=== PATIENT | female | born 1980 | race Caucasian/White ===

== ENCOUNTER 2016-12-16 14:50 | Emergency (ER) | payer OTHER ==
[2016-12-16 15:01] VITALS: BP 133/80
[2016-12-16] MEDS ORDERED: Sodium Chloride 0.9% 10 ML Syringe FLUSH PRN (15:14)
[2016-12-16] MEDS ORDERED: Sodium Chloride 0.9% 1,000 ML IV ONE (15:14)
[2016-12-16] MEDS ORDERED: Ondansetron 4 MG/2 ML SDV IVPUSH ONE (15:15)
[2016-12-16] MEDS ORDERED: HYDROmorphone 1 MG/ML Syringe IVPUSH ONE (15:15)
--- NOTE | 2016-12-16 15:22 | EDM.PDOC ---
ED HPI GENERAL MEDICAL PROBLEM - General Chief Complaint: Genitourinary Problem Stated Complaint: POSS UTI Time Seen by Provider: 12/16/16 15:05 Source of Information: Reports: Patient History Limitations: Reports: No Limitations - History of Present Illness INITIAL COMMENTS - FREE TEXT/NARRATIVE: Patient is a 36-year-old female presents to ED with history of frequent UTIs. Patient states last week she was diagnosed with UTI and was placed on 3 days of Ciprowith resolution of symptoms. Patient states since yesterday she has had burning with urination, increased frequency, and back pain. Patient states the pain she is experiencing is much worse then previous episodes. She has no history of Pyelonephritis. She has been utilizing multiple OTC supplements. She does have a history of kidney stones. Denies being , hx of STDs, abnormal vaginal discharge, multiple sexual partners. Recent FOLLOW UP MANAGER check 09/2016 revealed no abnormal findings. Onset Date: 12/15/16 Duration: Constant, Getting Worse, Waxing/Waning Location: Reports: Abdomen (suprapubic), Back Quality: Reports: Ache Severity: Severe Improves with: Reports: None Worsens with: Reports: Other (palpation, urinating), Movement Associated Symptoms: Reports: Fever/Chills, Malaise, Nausea/Vomiting. Denies: Chest Pain, Shortness of Breath Treatments MECHANICAL EXPERT: Reports: Other (see below) (OTC supplements ) Lower Abdominal Pain Score (Numeric/FACES): 10 - Related Data Allergies Allergy/AdvReac Type Severity Reaction Status Date / Time Sulfa (Sulfonamide Allergy Other Verified 08/05/16 11:09 Antibiotics) bee stings Allergy Anaphylactic Uncoded 08/05/16 11:09 Shock Home Meds: Home Meds Prednisone [IMW: predniSONE] 20 mg PO WITHBREAKFAST #5 tab 08/05/16 [Rx] Acetaminophen/HYDROcodone [[place] 325-5 MG] 1 tab PO Q6H PRN #5 tablet 12/16/16 [ Rx] Nitrofurantoin Monohyd/M-Cryst [Macrobid 100 mg Capsule] 100 mg PO BID #14 capsule 12/16/16 [Rx] Past Medical History Genitourinary History: Reports: UTI, Recurrent - Past Surgical History HEENT Surgical History: Reports: Tonsillectomy Social & Family History - Family History Family Medical History: Noncontributory - Tobacco Use Smoking Status *Q: Current Every Day Smoker Years of Tobacco use: 20 Packs/Tins Daily: 0.2 - Caffeine Use Caffeine Use: Reports: None - Recreational Drug Use Recreational Drug Use: No ED ROS GENERAL - Review of Systems Review Of Systems: See Below Constitutional: Reports: Fever, Malaise. Denies: Chills, Decreased Appetite Respiratory: Denies: Shortness of Breath, Cough, Sputum Cardiovascular: Denies: Chest Pain, Palpitations, Syncope GI/Abdominal: Reports: Abdominal Pain, Nausea. Denies: Constipation, Diarrhea, Vomiting : Reports: Dysuria, Flank Pain, Frequency, Hematuria, Pain, Urgency. Denies: Discharge Musculoskeletal: Reports: Back Pain ED EXAM, RENAL/ - Physical Exam Exam: See Below Exam Limited By: No Limitations General Appearance: Alert, WD/WN, Moderate Distress Ears: Hearing Grossly Normal Nose: Normal Inspection Throat/Mouth: Normal Voice, No Airway Compromise Neck: Normal Inspection, Supple Respiratory/Chest: No Respiratory Distress, Lungs Clear, Normal Breath Sounds Cardiovascular: Normal Peripheral Pulses, Regular Rate, Rhythm GI/Abdominal: Normal Bowel Sounds, Soft, No Organomegaly, No Distention, Tender (suprapubic region) Back Exam: Normal Inspection. No: CVA Tenderness (L), CVA Tenderness (R) Neurological: Alert, Oriented, CN II-XII Intact, Normal Cognition, No Motor/ Sensory Deficits Psychiatric: Normal Affect, Normal Mood Skin Exam: Warm, Dry, Intact, Normal Color, No Rash Course - Vital Signs Last Recorded V/S: Last Vital Signs Temp 99.1 F 12/16/16 14:56 Pulse 107 H 12/16/16 14:56 Resp BP 133/80 12/16/16 14:56 Pulse Ox 99 12/16/16 14:56 - Orders/Labs/Meds Orders: Active Orders 24 hr Category Date Time Status Peripheral IV Care [RC] . DIRECTED Care 12/16/16 15:14 Active CULTURE URINE [RM] Stat Lab 12/16/16 15:07 Received Peripheral IV Insertion Adult [OM.PC] Stat Oth 12/16/16 15:14 Ordered Labs: Laboratory Tests 12/16/16 12/16/16 12/16/16 Range/Units 15:07 15:07 15:22 WBC 14.29 H (3.98-10.04) K/mm3 RBC 4.10 (3.98-5.22) M/mm3 Hgb 13.5 (11.2-15.7) gm/L Hct 39.6 (34.1-44.9) % MCV 96.6 H (79.4-94.8) fl MCH 32.9 H (25.6-32.2) pg MCHC 34.1 (32.2-35.5) g/dl RDW Std Deviation 42.1 (36.4-46.3) fL Plt Count 477 H (182-369) K/mm3 MPV 9.4 (9.4-12.3) fl Neut % (Auto) 59.5 (34.0-71.1) % Lymph % (Auto) 30.4 (19.3-51.7) % [place] % (Auto) 8.7 (4.7-12.5) % Eos % (Auto) 0.7 (0.7-5.8) Baso % (Auto) 0.5 (0.1-1.2) % Neut # (Auto) 8.49 H (1.56-6.13) K/mm3 Lymph # (Auto) 4.35 H (1.18-3.74) K/mm3 [place] # (Auto) 1.25 H (0.24-0.36) K/mm3 Eos # (Auto) 0.10 (0.04-0.36) K/mm3 Baso # (Auto) 0.07 (0.01-0.08) K/mm3 Sodium (136-145) mEq/L Potassium (3.5-5.1) mEq/L Chloride (98-107) mEq/L Carbon Dioxide (21-32) mEq/L Anion Gap (5-15) BUN (7-18) mg/dL Creatinine (0.55-1.02) mg/dL Est Cr Clr Drug Dosing Estimated GFR (MDRD) (>60) mL/min BUN/Creatinine Ratio (14-18) Glucose (74-106) mg/dL Calcium (8.5-10.1) mg/dL Total Bilirubin (0.2-1.0) mg/dL AST (15-37) U/L ALT (14-59) U/L Alkaline Phosphatase (46-116) U/L C-Reactive Protein (<1.0) mg/dL Total Protein (6.4-8.2) g/dl Albumin (3.4-5.0) g/dl Globulin gm/dL Albumin/Globulin Ratio (1-2) Urine Color Glenn H (Yellow) Urine Appearance Slt cloudy H (Clear) Urine pH 6.0 (5.0-8.0) Ur Specific [place] 1.020 (1.005-1.030) Urine Protein 2+ H (Negative) Urine Glucose (UA) Trace H (Negative) Urine Ketones Trace H (Negative) Urine Occult Blood Trace-intact H (Negative) Urine Nitrite Positive H (Negative) Urine Bilirubin Negative (Negative) Urine Urobilinogen 1.0 (0.2-1.0) Ur Leukocyte Esterase 3+ H (Negative) Urine RBC 5-10 H (0-5) /hpf Urine WBC 75-100 H (0-5) /hpf Urine WBC Clumps Few (NOT SEEN) /hpf Ur Epithelial Cells Not Reportable Ur Squamous Epith Cells 20-30 H (0-5) /hpf Urine Bacteria Moderate H (FEW) /hpf Urine Mucus Not seen (FEW) /hpf Urine HCG, Qual Negative (NEGATIVE) 12/16/16 Range/Units 15:22 WBC (3.98-10.04) K/mm3 RBC (3.98-5.22) M/mm3 Hgb (11.2-15.7) gm/L Hct (34.1-44.9) % MCV (79.4-94.8) fl MCH (25.6-32.2) pg MCHC (32.2-35.5) g/dl RDW Std Deviation (36.4-46.3) fL Plt Count (182-369) K/mm3 MPV (9.4-12.3) fl Neut % (Auto) (34.0-71.1) % Lymph % (Auto) (19.3-51.7) % [place] % (Auto) (4.7-12.5) % Eos % (Auto) (0.7-5.8) Baso % (Auto) (0.1-1.2) % Neut # (Auto) (1.56-6.13) K/mm3 Lymph # (Auto) (1.18-3.74) K/mm3 [place] # (Auto) (0.24-0.36) K/mm3 Eos # (Auto) (0.04-0.36) K/mm3 Baso # (Auto) (0.01-0.08) K/mm3 Sodium 142 (136-145) mEq/L Potassium 3.5 (3.5-5.1) mEq/L Chloride 108 H (98-107) mEq/L Carbon Dioxide 23 (21-32) mEq/L Anion Gap 14.5 (5-15) BUN 13 (7-18) mg/dL Creatinine 0.8 (0.55-1.02) mg/dL Est Cr Clr Drug Dosing TNP Estimated GFR (MDRD) > 60 (>60) mL/min BUN/Creatinine Ratio 16.3 (14-18) Glucose 99 (74-106) mg/dL Calcium 8.1 L (8.5-10.1) mg/dL Total Bilirubin 0.3 (0.2-1.0) mg/dL AST 13 L (15-37) U/L ALT 14 (14-59) U/L Alkaline Phosphatase 65 (46-116) U/L C-Reactive Protein < 0.2 (<1.0) mg/dL Total Protein 6.9 (6.4-8.2) g/dl Albumin 3.6 (3.4-5.0) g/dl Globulin 3.3 gm/dL Albumin/Globulin Ratio 1.1 (1-2) Urine Color (Yellow) Urine Appearance (Clear) Urine pH (5.0-8.0) Ur Specific [place] (1.005-1.030) Urine Protein (Negative) Urine Glucose (UA) (Negative) Urine Ketones (Negative) Urine Occult Blood (Negative) Urine Nitrite (Negative) Urine Bilirubin (Negative) Urine Urobilinogen (0.2-1.0) Ur Leukocyte Esterase (Negative) Urine RBC (0-5) /hpf Urine WBC (0-5) /hpf Urine WBC Clumps (NOT SEEN) /hpf Ur Epithelial Cells Ur Squamous Epith Cells (0-5) /hpf Urine Bacteria (FEW) /hpf Urine Mucus (FEW) /hpf Urine HCG, Qual (NEGATIVE) Meds: Medications Discontinued Medications Generic Name Dose Route Start Last Admin Trade Name Freq PRN Reason Stop Dose Admin Hydromorphone HCl 0.5 mg 12/16/16 15:15 12/16/16 15:35 Dilaudid IVPUSH 12/16/16 15:16 0.5 mg ONETIME ONE Administration Sodium Chloride 1,000 mls @ 250 mls/hr 12/16/16 15:14 12/16/16 15:32 Normal Saline IV 12/16/16 19:13 250 mls/hr ONETIME ONE Administration Ceftriaxone Sodium 1 gm/ 100 mls @ 200 mls/hr 12/16/16 16:27 12/16/16 17:36 Sodium Chloride IV 12/16/16 16:56 200 mls/hr ONETIME ONE Administration Nitrofurantoin Macrocrystals 100 mg 12/16/16 16:32 12/16/16 17:37 Macrobid PO 12/16/16 16:33 100 mg ONETIME ONE Administration Ondansetron HCl 4 mg 12/16/16 15:15 12/16/16 15:33 Zofran IVPUSH 12/16/16 15:16 4 mg ONETIME ONE Administration Oxycodone/Acetaminophen 1 tab 12/16/16 18:01 12/16/16 18:34 Percocet 325-5 Mg PO 12/16/16 18:02 Not Given ONETIME ONE Sodium Chloride 10 ml 12/16/16 15:14 12/16/16 15:37 Saline Flush FLUSH 10 ml ASDIRECTED PRN Administration Keep Vein Open - Re-Assessments/Exams Free Text/Narrative Re-Assessment/Exam: Ordered IV with NS 250ml/hr, dilaudid 0.5 mg IVP, and Zofran 4mg IVP. Patient has developed worsening pain to the abdomen, nausea, back pain, and tactile fever since yesterday. States pain is significantly worse then any previous UTI' s. This is concerning for low grade pyelonephritis. Initial labs include: CBC , C14, CRP,UA, and HCG. Labs reviewed: White blood count 14.29, neutrophil percentage 59.75, N#8.49, sodium 142, potassium 3.5, creatinine 0.8, CRP less than 0.2. UA: Glenn, 2+ protein, trace glucose, trace ketones, trace occult blood, nitrates positive, leukocyte [place] 3+, rbc's 5-10, WBC 75-100, squamous epithelial cells 20-30, bacteria moderate. urine culture obtained. Reassessment: The patient's symptoms are much improved with the above therapies. Patient states she has no history of antibiotic resistance. Thus ordered Rocephin 1 g IV. We'll discharge patient home on macrobid 100 mg twice a day for 7 days. She'll be instructed to followup with primary care provider at the end of treatment to ensure resolution of UTI. Patient is is improved with treatment plan. Departure - Departure Time of Disposition: 17:26 Disposition: Home, Self-Care 01 Condition: good Clinical Impression: UTI, Urinary tract infectious disease - Discharge Information Prescriptions: Acetaminophen/HYDROcodone [[place] 325-5 MG] 1 tab PO Q6H PRN #5 tablet PRN Reason: Pain (Severe 7-10) Nitrofurantoin Monohyd/M-Cryst [Macrobid 100 mg Capsule] 100 mg PO BID #14 capsule Instructions: Urinary Tract Infection, Adult Referrals: Erika Schmidt PA [Physician Senior Risk Manager] - 12/24/16 (Hx of frequent UTI's with no antibiotic resistance. Started on macrobid 100mg bid for 7 days. Failed cipro 500mg bid for 3 days. UA recheck to ensure resolution. ) Forms: ED Department Discharge Additional Instructions: Take the macrobid 100mg twice a day for 7 days. Followup with PCP in 7 days to ensure resolution. Continue to take pyridium 100mg twice a day for 1 day. Push the fluids. Take tylenol and ibuprofen in alternating fashion for pain. Refrain from driving this evening since receiving a sedative medication in the E.D. For severe pain take norco 1 tab every 6 hours for pain. Return to the E.D. if you develop nausea with vomiting, increased pain, fever, or any additional new or worsening symptoms. - My Orders Last 24 Hours: My Active Orders 12/16/16 15:07 CULTURE URINE [RM] Stat 12/16/16 15:14 Peripheral IV Care [RC] . DIRECTED Peripheral IV Insertion Adult [OM.PC] Stat - Assessment/Plan Last 24 Hours: My Active Orders 12/16/16 15:07 CULTURE URINE [RM] Stat 12/16/16 15:14 Peripheral IV Care [RC] . DIRECTED Peripheral IV Insertion Adult [OM.PC] Stat
[2016-12-16] MEDS ORDERED: cefTRIAXone 1 GM in Sodium Chloride 0.9% 100 ML IV ONE (16:27)
[2016-12-16] MEDS ORDERED: Nitrofurantoin Monohydrate/Macrocrystalline 100 MG Cap PO ONE (16:32)
[2016-12-16] MEDS ORDERED: Acetaminophen/oxyCODONE 325-5 MG Tab PO ONE (18:01)
== END 2016-12-16 18:15 | disposition home or self-care (01) ==
LOC: JD.ED 14:50
DX: N39.0 Urinary tract infection, site not specified (principal); F17.210 Nicotine dependence, cigarettes, uncomplicated; Z88.2 Allergy status to sulfonamides; Z91.030 Bee allergy status; Z98.890 Other specified postprocedural states
CPT/HCPCS: 36415; 80053; 81001; 81025; 85025; 86140; 87086; 96361; 96365; 96375; 99284; A9270; J0696; J1170; J2405; J7030; J7040; J7050; 87088; 87186

== ENCOUNTER 2018-04-05 06:05 | Emergency (ER) | payer BC, OTHER ==
[2018-04-05 06:16] VITALS: BP 118/78
[2018-04-05] MEDS ORDERED: HYDROmorphone 1 MG/ML Syringe IM ONE (06:29)
[2018-04-05] MEDS ORDERED: Promethazine 25 MG/ML SDV IM ONE (06:29)
[2018-04-05] MEDS ORDERED: predniSONE 20 MG Tab PO ONE (06:29)
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
== END 2018-04-05 06:49 | disposition home or self-care (01) ==
LOC: JD.ED 06:05
DX: M50.122 Cervical disc disorder at C5-C6 level with radiculopathy (principal); Z88.2 Allergy status to sulfonamides; Z91.030 Bee allergy status
CPT/HCPCS: 96372; 99283; A9270; J1170; J2550; 99284

== ENCOUNTER 2023-11-09 20:24 | Emergency (ER) | payer BC ==
[2023-11-09 21:54] VITALS: BP 136/75; PULSE 72
== END 2023-11-09 21:54 | disposition home or self-care (01) ==
LOC: JD.ED 20:24
DX: S00.06XA Insect bite (nonvenomous) of scalp, initial encounter (principal); Z88.2 Allergy status to sulfonamides; Z91.030 Bee allergy status; W57.XXXA Bitten or stung by nonvenomous insect and other nonvenomous arthropods, initial encounter
CPT/HCPCS: 99282; 99283